=== PATIENT | male | born 1970 | race Caucasian/White ===

== ENCOUNTER 2018-12-06 13:37 | Emergency (ER) | payer MEDICAID ==
[~2018-12-06] VITALS: Ht 180.3 cm; Wt 74.8 kg
--- NOTE | 2018-12-06 13:58 | NUR ---
PATIENT ARRIVED AT UNIT [facility]. WITH C/O SURGICAL WOUND AREA PAIN/SWELLING X 4 DAYS. REPORTS SPINAL FUSION DONE 11/23/18. ACCOMPANIED TO BED 10. CONNECTED TO MONITOR
--- NOTE | 2018-12-06 13:59 | NUR ---
LINDA ROSE AT BEDSIDE
[2018-12-06] MEDS ORDERED: oxyCODONE/APAP (5/325 MG) 1 UDTAB TABLET PO ONE (14:00)
[2018-12-06] MEDS ORDERED: oxyCODONE/APAP (5/325 MG) 1 UDTAB TABLET ONE (14:01)
--- NOTE | 2018-12-06 14:27 | NUR ---
Patient discharged to home in stable condition. Written and verbal after care instructions given. Patient verbalizes understanding of instruction.
[2018-12-06 14:28] VITALS: BP 124/86
== END 2018-12-06 14:28 | disposition home or self-care (01) ==
LOC: ER 13:40
DX: S30.0XXA Contusion of lower back and pelvis, initial encounter (principal); X58.XXXA Exposure to other specified factors, initial encounter; Y93.89 Activity, other specified; Y92.89 Other specified places as the place of occurrence of the external cause; Y99.8 Other external cause status